=== PATIENT | male | born 1985 | race Caucasian/White ===

== ENCOUNTER 2023-09-19 19:47 | Emergency (ER) | payer BC ==
[~2023-09-19] VITALS: Ht 175.3 cm; Wt 192.8 kg
[2023-09-19 19:49] VITALS: O2SAT 97
[2023-09-19 19:50] VITALS: BP 137/84; PULSE 112; RESP 22
[2023-09-19] MEDS: MORPHINE 4 MG SYG IVP ONE (20:11)
[2023-09-19] MEDS: KETOROLAC 30MG VIAL (30MG/ML) IVP ONE (20:12)
[2023-09-19] MEDS: ONDANSETRON 4MG INJ IVP ONE (20:12)
[2023-09-19] MEDS ORDERED: IBUP-2077 PO (21:10)
== END 2023-09-19 21:29 | disposition home or self-care (01) ==
LOC: EDH 19:47
DX: S83.004A Unspecified dislocation of right patella, initial encounter (principal); X58.XXXA Exposure to other specified factors, initial encounter; Y93.89 Activity, other specified; Y92.89 Other specified places as the place of occurrence of the external cause; Y99.8 Other external cause status
CPT/HCPCS: 99284; 96374; 96375; 73562; J2405; J2270; J1885